=== PATIENT | female | born 1995 | race African-American/Black ===

== ENCOUNTER 2017-04-19 17:42 | Emergency (ER) | payer SELFPAY ==
[2017-04-19 17:50] VITALS: BP 101/53
--- NOTE | 2017-04-19 18:03 | UC ---
Complaint Female HPI - HPI Summary HPI Summary: Pt presents with c/o vaginal odor, discharge and discomfort. Pt reports that she used Izquierdo hair removal yesterday along her "bikini" line and reported that soon after applying cream, the skin felt "burning" and "irritated" pt immediately washed off lotion. Pt then states that she went swimming and woke this morning with vaginal odor and discharge. Pt also c/o dysuria. Pt denies risk for STD and is sexually active with exclusive partner. Does not use control. - History Of Current Complaint Chief Complaint: UCGU Stated Complaint: URINARY COMPLAINT Time Seen by Provider: 04/19/17 17:50 Hx Obtained From: Patient Hx Last Menstrual Period: 03/13/17 ?: No Onset/Duration: Sudden Onset, Lasting Days - 1, Still Present Timing: Constant Severity Initially: Mild Severity Currently: Mild Character: Dull, Burning Aggravating Factor(s): Urination Associated Signs And Symptoms: Positive: Vaginal Discharge - white, odiferous - Risk Factors Ectopic Risk Factor: Negative Ovarian Torsion Risk Factor: Reproductive Age - Allergies/Home Medications Allergies/Adverse Reactions: Allergies Allergy/AdvReac Type Severity Reaction Status Date / Time No Known Allergies Allergy Verified 04/19/17 17:51 PMH/Surg Hx/FS Hx/Imm Hx Previously Healthy: Yes - Surgical History Surgical History: None - Family History Known Family History: Positive: Cardiac Disease - Social History Occupation: Employed Full-time Lives: With Family Alcohol Use: None Substance Use Type: Marijuana Smoking Status (MU): Never Smoked Tobacco Have You Smoked in the Last Year: No Review of Systems Constitutional: Negative Skin: Other - c/o labial and groin tenderness/irritation/skin Eyes: Negative ENT: Negative Respiratory: Negative Cardiovascular: Negative Gastrointestinal: Negative Genitourinary: Dysuria, Other - vaginal discharge, vaginal odor Motor: Negative Neurovascular: Negative Musculoskeletal: Negative Neurological: Negative Psychological: Negative All Other Systems Reviewed And Are Negative: Yes Physical Exam Triage Information Reviewed: Yes Appearance: Well-Appearing Vital Signs: Initial Vital Signs Temp 98.1 F 04/19/17 17:45 Pulse 77 04/19/17 17:45 Resp 16 04/19/17 17:45 BP 101/53 04/19/17 17:45 Pulse Ox 100 04/19/17 17:45 Vital Signs Reviewed: Yes Eye Exam: Normal Neck exam: Normal Respiratory: Positive: No respiratory distress Abdominal Exam: Normal Abdomen Description: Positive: Other: - yellow/white vaginal discharge, fish odor Musculoskeletal Exam: Normal Neurological Exam: Normal Psychological Exam: Normal Skin Exam: Normal Complaint Female Dx - Course Course Of Treatment: I discussed with the pt to not continue to use Izquierdo product to genital area. Additionaly, I discussed with the pt my suspicion of BV. Pt verbalized understanding and agreed to plan of care. - Differential Dx/Diagnosis Differential Diagnosis/HQI/PQRI: , Sexually Transmitted Disease, Urinary Tract Infection Provider Diagnoses: Bacterial vaginosis Discharge - Discharge Plan Condition: Stable Disposition: HOME Prescriptions: metroNIDAZOLE VAGINAL 0.75%* 1 applic VAGINAL BEDTIME #5 tube Patient Education Materials: Bacterial Vaginosis (ED) Referrals: [facility] [Outside] No Primary Care Phys,NOPCP [Primary Care Provider] - If Needed Additional Instructions: Please follow up with your PCP for [employer] follow up. If unable to follow up with your PCP please return to clinic as needed.
== END 2017-04-19 18:19 | disposition home or self-care (01) ==
LOC: UCCORT 17:42
DX: N76.0 Acute vaginitis (principal); R30.0 Dysuria; Z32.02 Encounter for pregnancy test, result negative
CPT/HCPCS: 81003; 84702; 87480; 87491; 87510; 87591; 87661; 99212; G0463